=== PATIENT | female | born 1985 | race Caucasian/White ===

== ENCOUNTER 2018-06-16 00:25 | Emergency (ER) | payer BC ==
--- NOTE | 2018-06-16 00:40 | Emergency Department Record ---
Anxiety - General Chief Complaint: Anxiety Stated Complaint: ANXIETY Time Seen by Provider: 06/16/18 00:34 Source: Patient Mode of Arrival: Ambulatory Limitations: No limitations - History of Present Illness Initial Comments: 33 yo female presents to ED for evaluation of anxiety symptoms and palpitations that began this morning. Patient reports similar symptoms previously, reports that her father 2 months ago and she has been having anxiety symptoms since that time. Patient reports that she was taking Celexa, however the medication was making her feel more anxious. Patient denies health problems at her baseline. MD Complaint: Anxiety Onset/Timin -: Hour(s) Symptoms: Palpitations Place: Home Previous History of Same: Yes Severity: Moderate Quality: Constant Provoking factors: Emotional stress, Recent /illness of family member Improves With: Nothing Worsens With: Nothing Associated symptoms: Denies other symptoms - Related Data Home Medications: Previous Rx's Medication Instructions Recorded Lorazepam [Ativan] 1 mg PO Q8H PRN #5 tablet 06/16/18 Allergies/Adverse Reactions: Allergies Allergy/AdvReac Type Severity Reaction Status Date / Time Penicillins Allergy HIVES Verified 06/16/18 00:39 Sulfa (Sulfonamide Allergy HIVES Verified 06/16/18 00:39 Antibiotics) Review of Systems Constitutional: Denies: Chills, Fever, Malaise, Night sweats Eyes: Denies: Eye discharge, Eye pain ENT: Denies: Congestion, Ear pain, Epistaxis Respiratory: Denies: Cough, Dyspnea Cardiovascular: Reports: Palpitations. Denies: Chest pain, Dyspnea on exertion Endocrine: Denies: Fatigue, Heat or cold intolerance Gastrointestinal: Denies: Abdominal pain, Nausea, Vomiting Genitourinary: Denies: Incontinence, Retention Musculoskeletal: Denies: Arthralgia, Back pain Skin: Denies: Bruising, Change in color, Change in hair/nails Neurological: Denies: Abnormal gait, Confusion, Headache, Seizure Psychiatric: Reports: Anxiety Hematological/Lymphatic: Denies: Anemia, Blood Clots Physical Exam - General General Appearance: Alert, Oriented x3, Cooperative, Mild distress Limitations: No limitations - Head Head exam: Atraumatic, Normocephalic, Normal inspection Head exam detail: negative: Abrasion, Contusion, Aragon's sign, General tenderness, Hematoma, Laceration - Eye Eye exam: Normal appearance. negative: Conjunctival injection, Periorbital swelling, Periorbital tenderness, Scleral icterus - ENT Ear exam: negative: Auricular hematoma, Auricular trauma Nasal Exam: negative: Active bleeding, Discharge, Dried blood, Foreign body Mouth exam: negative: Drooling, Laceration, Muffled voice, Tongue elevation - Neck Neck exam: Normal inspection. negative: Meningismus, Tenderness - Respiratory Respiratory exam: Normal lung sounds bilaterally. negative: Rales, Respiratory distress, Rhonchi, Stridor - Cardiovascular Cardiovascular Exam: Regular rate, Normal rhythm, Normal heart sounds - GI/Abdominal GI/Abdominal exam: Soft. negative: Rebound, Rigid, Tenderness - Rectal Rectal exam: Deferred - exam: Deferred - Extremities Extremities exam: Normal inspection. negative: Pedal edema, Tenderness - Back Back exam: Denies: CVA tenderness (R), CVA tenderness (L) - Neurological Neurological exam: Alert, Normal gait, Oriented X3 - Psychiatric Psychiatric exam: Normal affect, Normal mood - Skin Skin exam: Normal color. negative: Abrasion Type of lesion: negative: abrasion Course - Reevaluation(s) Reevaluation #1: 06/16/ 00:44 EKG: NSR 67 Normal axis, normal intervals No acute ST-T changes are present. Discussed treatment options with the patient, will administer ativan 1 mg PO to take once she arrives home safely. Will prescribe #5 tablets with instructions to contact her PCP for other treatment options next week. Patient appears stable for discharge at this time. Disposition Disposition: Discharge Clinical Impression: Anxiety reaction Disposition: Home, Self-Care Condition: (2) Stable Instructions: Anxiety (ED) Additional Instructions: Return to ED if your symptoms worsen or if you have any concerns. Ativan as directed. Follow-up with your family doctor in 3-5 days as directed. Prescriptions: Lorazepam [Ativan] 1 mg PO Q8H PRN #5 tablet PRN Reason: Anxiety Forms: Patient Portal Access Time of Disposition: 00:50 Quality - Quality Measures Quality Measures: N/A - Blood Pressure Screening Does Patient Have Any of the Following: No Blood Pressure Classification: Pre-Hypertensive BP Reading Systolic Measurement: 122 Diastolic Measurement: 81 Screening for High Blood Pressure: < Pre-Hypertensive BP, F/U Documented > [ [id number]] Pre-Hypertensive Follow-up Interventions: Referral to alternative/primary care provider.
[2018-06-16] MEDS ORDERED: LORAZEPAM 0.5 MG TABLET PO ONE (00:51)
== END 2018-06-16 01:12 | disposition home or self-care (01) ==
LOC: EDBD 00:25 → ER 00:25
DX: F43.22 Adjustment disorder with anxiety (principal)
CPT/HCPCS: 93005; 93010; 99283